=== PATIENT | male | born 1980 | race Two or more races ===

== ENCOUNTER 2019-10-28 07:04 | Emergency (ER) | payer OTHER ==
[~2019-10-28] VITALS: Ht 167.6 cm; Wt 75.0 kg
[2019-10-28] MEDS ORDERED: SODIUM CHLORIDE 0.9% 1,000 ML IV ONE (09:15)
[2019-10-28] MEDS ORDERED: IBUPROFEN 600 MG TABLET PO ONE (09:15)
[2019-10-28] MEDS ORDERED: ACETAMINOPHEN 500 MG TABLET PO ONE (09:15)
[2019-10-28 10:36] VITALS: BP 121/72
== END 2019-10-28 10:36 | disposition home or self-care (01) ==
LOC: EMS 07:04
DX: E86.0 Dehydration (principal); R51 Headache; Z20.828 Contact with and (suspected) exposure to other viral communicable diseases
CPT/HCPCS: 93005; 99284; U0003; Z7502; Z7610

== ENCOUNTER 2020-11-17 20:10 | Emergency (ER) | payer OTHER ==
[~2020-11-17] VITALS: Ht 165.1 cm; Wt 70.0 kg
[2020-11-17 20:30] VITALS: BP 132/75
[2020-11-17] MEDS ORDERED: PERTUSS(ACELL),DIPH,TET VAC/PF 0.5 ML SYRINGE IM. ONE (20:30)
== END 2020-11-17 21:20 | disposition home or self-care (01) ==
LOC: EMS 20:12
DX: S81.811A Laceration without foreign body, right lower leg, initial encounter (principal); W25.XXXA Contact with sharp glass, initial encounter; Y93.89 Activity, other specified; Y92.89 Other specified places as the place of occurrence of the external cause; Y99.8 Other external cause status
CPT/HCPCS: 90471; 90715; 99283